=== PATIENT | male | born 1995 | race Two or more races ===

== ENCOUNTER 2019-05-29 10:24 | Emergency (ER) | payer OTHER ==
[~2019-05-29] VITALS: Ht 170.2 cm; Wt 70.8 kg
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
[2019-05-29] MEDS ORDERED: IBUPROFEN 600 MG TABLET PO ONE ×2 (11:30→11:31)
--- NOTE | 2019-05-29 11:37 | NUR ---
PT. VERBALIZED UNDERSTANDING OF AFTERCARE INSTRUCTIONS.Patient discharged to custody of [employer] in stable condition. Written and verbal after care instructions given. Patient verbalizes understanding of instruction.
[2019-05-29 11:38] VITALS: BP 134/85
== END 2019-05-29 11:38 ==
LOC: ER 10:26
DX: S60.221A Contusion of right hand, initial encounter (principal); W22.8XXA Striking against or struck by other objects, initial encounter; Y93.89 Activity, other specified; Y92.89 Other specified places as the place of occurrence of the external cause; Y99.8 Other external cause status
CPT/HCPCS: 73130-TC